=== PATIENT | male | born 1940 | race Caucasian/White ===

== ENCOUNTER 2018-11-07 07:59 | Day surgery (SDC) | payer OTHER ==
[2018-10-24 17:06] VITALS: BMI 32.6
[2018-11-07] MEDS ORDERED: KETOROLAC TROMETHAMINE 30 MG/1 ML VIAL ONE (08:39)
[2018-11-07] MEDS ORDERED: DEXAMETHASONE SOD PHOSPHATE 4 MG/1 ML VIAL ONE (08:39)
[2018-11-07] MEDS ORDERED: MIDAZOLAM HCL 2 MG/2 ML SINGLE DOSE VIAL ONE (08:39)
[2018-11-07] MEDS ORDERED: ONDANSETRON 4 MG/2 ML VIAL ONE (08:39)
[2018-11-07] MEDS ORDERED: LIDOCAINE HCL/PF 2% SDV 5ML VIAL ONE (08:39)
[2018-11-07] MEDS ORDERED: ceFAZolin SODIUM 1 GM VIAL ONE (08:39)
[2018-11-07] MEDS ORDERED: PROPOFOL 20 ML ONE (08:45)
[2018-11-07] MEDS ORDERED: LIDOCAINE HCL 2% (50ML VIAL) INF ONE (10:12)
[2018-11-07 11:27] VITALS: BP 116/78; PULSE 74; TEMP 97.8
[2018-11-07] MEDS ORDERED: oxyCODONE HCL 5 MG TABLET PO PRN ×2 (11:41)
[2018-11-07] MEDS ORDERED: ACETAMINOPHEN 325 MG TABLET (FP) PO PRN (11:41)
[2018-11-07] MEDS ORDERED: ONDANSETRON 4 MG/2 ML VIAL IVPUSH PRN (11:41)
[2018-11-07] MEDS ORDERED: LACTATED RINGERS SOLUTION 1,000 ML IV SCH (11:45)
--- NOTE | 2018-11-08 15:21 | OP ---
DATE OF OPERATION: 11/07/2018 PREOPERATIVE DIAGNOSIS: Right carpal tunnel syndrome. POSTOPERATIVE DIAGNOSIS: Right carpal tunnel syndrome. OPERATIVE PROCEDURE: Right carpal tunnel release. SURGEON: Daniel Murcia MD ANESTHESIA: Local sedation. COMPLICATIONS: None. ESTIMATED BLOOD LOSS: Minimal. INDICATIONS FOR PROCEDURE: The patient is a 78-year-old male with the above finding indicated for operative treatment. The risks, benefits, and alternatives were discussed with the patient at length and proper informed consent was obtained. PROCEDURE: After proper identification of the patient and correct operative site, the patient was brought to the operating room and placed supine on the table. Prominences were well padded. Sedation and local anesthesia were given. The right upper extremity was prepped and draped in the usual sterile fashion. A well-padded tourniquet was placed with a sterile prep. Esmarch bandage was used to exsanguinate the right upper extremity. The tourniquet was inflated to 250 mmHg. A longitudinal incision was made over the proximal aspect of the thumb. The incision was taken sharply through the skin with blunt and sharp dissection of the subcutaneous tissues. The palmar fascia was divided longitudinally. The transverse carpal ligament was divided longitudinally under direct visualization with loop magnification along with the distal 4 cm of antebrachial fascia under direct visualization with loop magnification. This provided complete release of the median nerve of the wrist. The wound was irrigated with saline and repaired with a 5-0 plain gut suture. Sterile dressings were applied. The patient was reversed from anesthesia and brought to the recovery room in stable condition. He tolerated the procedure well DANIEL MURCIA M.D. [id number]
== END 2018-11-07 11:30 | disposition home or self-care (01) ==
LOC: FASU 07:59
PROVIDERS: ATTEND Orthopaedic Surgery Hand Surgery
PROC: 01N50ZZ Release Median Nerve, Open Approach (ICD-10-PCS; principal; 2018-11-07 09:30)
DX: G56.01 Carpal tunnel syndrome, right upper limb (principal)
CPT/HCPCS: 82962